=== PATIENT | female | born 1965 | race Caucasian/White ===

== ENCOUNTER 2020-12-13 04:58 | Emergency (ER) | payer MEDICAID ==
[2020-12-13 05:12] VITALS: BP 181/104
[2020-12-13] MEDS ORDERED: METOCLOPRAMIDE HCL ORAL SOLN 10 MG/10 ML UDCUP PO ONE (06:45)
[2020-12-13] MEDS ORDERED: LIDOCAINE 2% VISCOUS SOLN 15 ML UDCUP PO ONE (06:45)
[2020-12-13] MEDS ORDERED: MAG HYDROX/AL HYDROX/SIMETH SUSP 30 ML UDCUP PO ONE (06:45)
--- NOTE | 2020-12-13 06:47 | ER Document Report ---
ED Medical Screen (RME) - General Chief Complaint: Epigastric Pain Stated Complaint: STOMACH CRAMPS/DIARRHEA Time Seen by Provider: 12/13/20 06:41 Mode of Arrival: Ambulatory Information source: Patient Notes: 55-year-old female presented to ED for complaint of epigastric pain bilaterally with diarrhea x5 or 6 today. She states she also has been burping a lot and had some pain going down her left arm. States she also had a headache. She states she does have a history of reflux in the past but has been on AcipHex but stopped that because she was no longer having any pain. She states this pain today started about 4 AM and she is still having the pain now. I have ordered blood urine ultrasound and chest x-ray and EKG. I have greeted and performed a rapid initial assessment of this patient. A comprehensive ED assessment and evaluation of the patient, analysis of test results and completion of medical decision making process will be conducted by an additional ED providers. - Related Data Allergies/Adverse Reactions: No Known Allergies Allergy (Unverified 12/13/20 05:13) Home Medications: HTN CHOLESTEROL Past Medical History - Social History Frequency of alcohol use: None Drug Abuse: None Physical Exam - Vital signs Vitals: Temp Pulse BP Pulse Ox 98.8 F 66 181/104 H 100 12/13/20 05:11 12/13/20 05:11 12/13/20 05:11 12/13/20 05:11 Course - Vital Signs Vital signs: Temp Pulse Resp BP Pulse Ox 98.8 F 66 181/104 H 100 12/13/20 05:11 12/13/20 05:11 12/13/20 05:11 12/13/20 05:11
--- NOTE | 2020-12-13 08:29 | RADIOLOGY REPORT (SQ) ---
EXAM DESCRIPTION: U/S ABDOMEN LIMITED W/O DOP IMAGES COMPLETED DATE/TIME: 12/13/2020 7:31 am REASON FOR STUDY: Upper abdominal pain COMPARISON: None. TECHNIQUE: Dynamic and static grayscale images acquired of the abdomen and recorded on PACS. Additio nal selected color Doppler and spectral images recorded. LIMITATIONS: None. FINDINGS: PANCREAS: The visualized portions of the pancreas appear normal. The pancreatic duct usama ures 2 mm in diameter. LIVER: Normal contour and echotexture of the liver. LIVER VASCULATURE: Normal hepatopetal directional flow in the main portal vein. GALLBLADDER: The gallbladder wall measures 1 mm in thickness. There is no cholelithiasis, sludge or pericholecystic fluid. ULTRASOUND-DETECTED DIAS'S SIGN: Negative. INTRAHEPATIC DUCTS AND COMMON DUCT: The common bile duct measures 5 mm in diameter. There is no dila tation of the intrahepatic ducts. INFERIOR VENA CAVA: Not assessed. AORTA: No aneurysm. RIGHT KIDNEY: The right kidney measures 14.4 cm in length. There is an anechoic cyst in the upper p ole of the kidney that measures 10.3 x 9.4 x 7.4 cm. PERITONEAL AND RIGHT PLEURAL SPACE: No ascites or effusions. OTHER: No other findings. IMPRESSION: 1. 10.3 x 9.4 x 7.4 cm anechoic cyst in the upper pole of the right kidney. 2. Normal appearance of the gallbladder, liver and pancreas. TECHNICAL DOCUMENTATION: JOB ID: [id number] 2010 [employer]- All Rights Reserved Reading location - IP/workstation name: [email or web address]
--- NOTE | 2020-12-13 09:10 | RADIOLOGY REPORT (SQ) ---
EXAM DESCRIPTION: ACUTE ABDOMEN SERIES IMAGES COMPLETED DATE/TIME: 12/13/2020 8:43 am REASON FOR STUDY: abd pain COMPARISON: None. NUMBER OF VIEWS: Three views. TECHNIQUE: An AP view of the chest and AP supine and upright views of the abdomen were obtained. LIMITATIONS: None. FINDINGS: CHEST: The cardiac silhouette is mildly enlarged. The pulmonary vasculature and mediastin al contours are within normal limits. There is no consolidation, pleural effusion or pneumothorax. FREE AIR: None. BOWEL GAS PATTERN: No dilated loops of bowel or differential air-fluid levels. CALCIFICATIONS: None. HARDWARE: None in the abdomen. SOFT TISSUES: No acute gross abnormality. BONES: No acute fracture. OTHER: No other findings. IMPRESSION: 1. No acute cardiopulmonary process. 2. Nonobstructive bowel gas pattern. TECHNICAL DOCUMENTATION: JOB ID: [id number] 2010 [employer]- All Rights Reserved Reading location - IP/workstation name: [email or web address]
[2020-12-13 09:18] LABS: ABSOLUTE LYMPHOCYTES (AUTO) 1.6 10^3/uL (0.5-4.7); ABSOLUTE MONOCYTES (AUTO) 0.3 10^3/uL (0.1-1.4); ABSOLUTE NEUT (AUTO) 1.7 10^3/uL (1.7-8.2); BASOPHILS % (AUTO) 0.8 % (0-2); EOSINOPHILS % (AUTO) 0.3 % (0-6); HEMATOCRIT 36.4 % (36.0-47.0); HEMOGLOBIN 12.8 g/dL (12.0-15.5); LYMPHOCYTES % (AUTO) 44.2 % (13-45); MEAN CORPUSCULAR HEMOGLOBIN 30.6 pg (27.0-33.4); MEAN CORPUSCULAR HGB CONC 35.2 g/dL (32.0-36.0); MEAN CORPUSCULAR VOLUME 87 fl (80-97); PLATELET COUNT 253 10^3/uL (150-450); RED BLOOD COUNT 4.19 10^6/uL (3.72-5.28); RED CELL DISTRIBUTION WIDTH 13.7 % (11.5-14.0); SEGMENTED NEUTROPHILS % (AUTO) 47.7 % (42-78); TOTAL CELLS COUNTED % (AUTO) 100 %; WHITE BLOOD COUNT 3.6 10^3/uL (4.0-10.5)
[2020-12-13 09:45] LABS: ALBUMIN 4.5 g/dL (3.5-5.0); ASPARTATE AMINO TRANSFERASE 33 U/L (14-36); BILIRUBIN,DIRECT 0.2 mg/dL (0.0-0.4); BILIRUBIN,TOTAL 0.8 mg/dL (0.2-1.3); BLOOD UREA NITROGEN 11 mg/dL (7-20); CALCIUM 9.6 mg/dL (8.4-10.2); CARBON DIOXIDE 27 mmol/L (22-30); CHLORIDE 106 mmol/L (98-107); GLUCOSE 99 mg/dL (75-110); NEONATAL BILIRUBIN RESULT 0.6 mg/dL (0.1-1.1); TOTAL PROTEIN 10.1 g/dL (6.3-8.2)
[2020-12-13 09:47] LABS: ALKALINE PHOSPHATASE 94 U/L (38-126); ANION GAP 8 (5-19); POTASSIUM 3.9 mmol/L (3.6-5.0)
[2020-12-13 10:40] LABS: APPEARANCE,URINE CLEAR; BILIRUBIN,URINE NEGATIVE (NEGATIVE); COLOR,URINE STRAW; GLUCOSE, URINE NEGATIVE (NEGATIVE); KETONES,URINE NEGATIVE (NEGATIVE); LEUKOCYTE ESTERASE,URINE TRACE (NEGATIVE); NITRITE,URINE NEGATIVE (NEGATIVE); PROTEIN,URINE NEGATIVE (NEGATIVE); URINE SPECIFIC GRAVITY 1.009; UROBILINOGEN,URINE NEGATIVE mg/dL (<2.0)
--- NOTE | 2020-12-13 11:55 | EKG REPORT ---
SEVERITY:- ABNORMAL ECG - SINUS BRADDYCARDIA. ABNORMAL T, CONSIDER ISCHEMIA, ANT-LAT LEADS , NO OLD EKG FOR COMPARISON., CLINICAL CORRELATIONS NEED ED : Confirmed by: Priyank Aviles MD 13-Dec-2020 11:54:26
--- NOTE | 2020-12-13 12:45 | ER Document Report ---
Entered by HODAN BAXTER SCRIBE 12/13/20 0748 Acting as scribe for:LISSA MONQIUE MD ED GI/ - General Chief Complaint: Epigastric Pain Stated Complaint: STOMACH CRAMPS/DIARRHEA Time Seen by Provider: 12/13/20 06:41 Mode of Arrival: Medic Information source: Patient Notes: This 55 year old female patient with a history of hypertension and GERD presents to the ED today via EMS with complaints of generalized abdominal pain that started x2 days ago. She states that she used to take AcipHex for her reflux, but decided to stop taking it years ago on her own because her pain was gone. She mentions that she had a left frontal headache around 0400 this morning due to an elevated blood pressure, but denies the headache at this time. Denies fever, chills, cough, sore throat, loss of taste/smell, or concerns for COVID. Last bowel movement was this morning. - Related Data Allergies/Adverse Reactions: No Known Allergies Allergy (Unverified 12/13/20 05:13) Home Medications: HTN CHOLESTEROL Past Medical History - General Information source: Patient, [facility] Records - Social History Smoking Status: Never Smoker Cigarette use (# per day): No Chew tobacco use (# tins/day): No Smoking Education Provided: No Frequency of alcohol use: None Drug Abuse: None Family History: Reviewed & Not Pertinent - Past Medical History Cardiac Medical History: Reports: Hx Hypertension GI Medical History: Reports: Hx Gastroesophageal Reflux Disease Review of Systems - Review of Systems Constitutional: See HPI. denies: Chills, Fever EENT: See HPI. denies: Throat pain, Other - Loss of taste/smell Cardiovascular: No symptoms reported Respiratory: See HPI. denies: Cough Gastrointestinal: See HPI, Abdominal pain, Last bowel movement - this morning Genitourinary: No symptoms reported Female Genitourinary: No symptoms reported Musculoskeletal: No symptoms reported Skin: No symptoms reported Hematologic/Lymphatic: No symptoms reported Neurological/Psychological: No symptoms reported -: Yes All other systems reviewed and negative Physical Exam - Vital signs Vitals: Temp Pulse BP Pulse Ox 98.8 F 66 181/104 H 100 12/13/20 05:11 12/13/20 05:11 12/13/20 05:11 12/13/20 05:11 - General General appearance: Appears well, Alert In distress: None - HEENT Head: Normocephalic, Atraumatic Eyes: Normal Extraocular movements intact: Yes Pupils: PERRL Neck: Normal, Supple - Respiratory Respiratory status: No respiratory distress Chest status: Nontender Breath sounds: Normal Chest palpation: Normal - Cardiovascular Rhythm: Regular Heart sounds: Normal auscultation Murmur: No - Abdominal Inspection: Obese Distension: No distension Bowel sounds: Normal Tenderness: Tender - Diffuse tenderness to palpation, Other - Abdomen soft. No: Rebound Organomegaly: No organomegaly - Back Back: Normal, Nontender - Extremities General upper extremity: Normal inspection General lower extremity: Normal inspection. No: Edema - Neurological Neuro grossly intact: Yes Orientation: AAOx4 Js Coma Scale Eye Opening: Spontaneous Js Coma Scale Verbal: Oriented Js Coma Scale Motor: Obeys Commands Js Coma Scale Total: 15 - Psychological Associated symptoms: Normal affect, Normal mood - Skin Skin Temperature: Warm Skin Moisture: Dry Skin Color: Normal Course - Re-evaluation Re-evalutation: 12/13/20 13:16 Patient resting comfortably not showing any signs of distress at this time. Patient's abdominal pain improved after receiving a GI cocktail. - Vital Signs Vital signs: Temp Pulse Resp BP Pulse Ox 98.8 F 66 181/104 H 100 12/13/20 05:11 12/13/20 05:11 12/13/20 05:11 12/13/20 05:11 12/13/20 13:16 Vital signs stable. Patient's current blood pressure is 132/92. - Laboratory Results Result Diagrams: 12/13/20 09:08 12/13/20 09:08 Laboratory Results Interpreted: 12/13/20 12/13/20 12/13/20 09:08 09:08 09:47 WBC 3.6 L Total Protein 10.1 H Urine Blood SMALL H Ur Leukocyte Esterase TRACE H Laboratories do not show any acute critical labs. Critical Laboratory Results Reviewed: No Critical Results - Radiology Results Radiology Results Interpreted: 12/13/20 13:17 Abdomen Ultrasound 12/13/20 06:44 IMPRESSION: 1. 10.3 x 9.4 x 7.4 cm anechoic cyst in the upper pole of the right kidney. 2. Normal appearance of the gallbladder, liver and pancreas. Acute Abdomen Series 12/13/20 08:14 IMPRESSION: 1. No acute cardiopulmonary process. 2. Nonobstructive bowel gas pattern. Ultrasound shows an anechoic cyst in the upper pole of the right kidney otherwise normal appearance of gallbladder liver and pancreas Abdominal series of the abdomen shows nonobstructive bowel gas pattern and no acute cardiopulmonary process. Critical Radiology Results Reviewed: No Critical Results - EKG Interpretation by Me Additional EKG results interpreted by me: 12/13/20 13:18 Twelve-lead EKG shows normal sinus rhythm rate of 56 actually sinus bradycardia abnormal T waves and consider ischemic anterior lateral leads. Patient's KS interval is within normal range QRS interval within normal range QT interval within normal range patient has a normal axis patient has T wave inversions in V4 through V6 not downsloping ST segments no ST elevations no prior EKG to compare patient has no evidence for STEMI. Discharge - Discharge Clinical Impression: Abdominal pain, Hypertension Condition: Stable Disposition: HOME, SELF-CARE Instructions: Abdominal Pain ([facility]) I personally performed the services described in the documentation, reviewed and edited the documentation which was dictated to the scribe in my presence, and it accurately records my words and actions.
== END 2020-12-13 13:42 | disposition home or self-care (01) ==
LOC: ER 04:58
DX: R10.84 Generalized abdominal pain (principal); R10.817 Generalized abdominal tenderness; I10 Essential (primary) hypertension; Q61.01 Congenital single renal cyst; K21.9 Gastro-esophageal reflux disease without esophagitis; T47.1X6A Underdosing of other antacids and anti-gastric-secretion drugs, initial encounter; Z91.128 Patient's intentional underdosing of medication regimen for other reason; Z91.14 Patient's other noncompliance with medication regimen; Z79.899 Other long term (current) drug therapy
CPT/HCPCS: 93005; 99285; 36415; 83605; 83690; 85025; 80053; 81001; 84484; 74022; 76705; 93010; J3490 ×3